=== PATIENT | male | born 1960 | race Caucasian/White ===

== ENCOUNTER 2020-08-18 07:03 | Day surgery (SDC) | payer BC ==
[~2020-08-18] VITALS: Ht 172.7 cm; Wt 90.7 kg
--- NOTE | ~2020-08-18 | HP ---
PATIENT: KATHY PORTILLO MEDICAL RECORD: [id number] ACCOUNT: [id number] LOCATION:[facility] : 58 ADMISSION DATE: 08/18/20 PCP: HISTORY AND PHYSICAL EXAMINATION HISTORY OF PRESENT ILLNESS: Mr. Portillo is 60. He has a left TM perforation with chronic problems with drainage and hearing loss, making it difficult to wear his hearing aid. He has been admitted for left tympanoplasty. PAST MEDICAL HISTORY: Include ulcers, hypertension and reflux. CURRENT MEDICATIONS: Losartan, omeprazole, amlodipine, celecoxib, amitriptyline, acyclovir. ALLERGIES: No known drug allergies. PAST SURGICAL HISTORY: Includes wrist surgery in 2019, knee surgery in 2015 and right carpal tunnel in 2012. PHYSICAL EXAMINATION: GENERAL: He is healthy-appearing. FACE: Normal, symmetric, no lesions. EYES: Sclerae and conjunctivae are normal. EARS: Right ear is normal. Left ear, he has an anterior inferior perforation; central not infected. NOSE: No masses, polyps, or drainage. ORAL CAVITY AND OROPHARYNX: Normal palate. No lesions. NECK: No masses, no adenopathy. CHEST: Clear. CARDIOVASCULAR: Regular rate and rhythm, no murmur. EXTREMITIES: Normal. IMPRESSION: Left tympanic membrane perforation with chronic otitis media and mixed hearing loss. PLAN: Left tympanoplasty. TRANSINT:[id number] Voice Confirmation ID: [id number] DOCUMENT ID: [id number] HONORIO ZACARISA MD CC: [id number] DICTATION DATE: 08/17/20 1408 [employer] BLOCKING OPERATOR: 08/17/20 1424 [id number] [place] [address]
--- NOTE | ~2020-08-18 | OP ---
PATIENT NAME: KATHY PORTILLO MEDICAL RECORD: [id number] :58 LOCATION:[facility] ADMISSION DATE: SURGEON: NILS KUMAR MD DATE OF OPERATION: 08/18/2020 PREOPERATIVE DIAGNOSES: Left TM perforation and left chronic otitis media, left conductive hearing loss. POSTOPERATIVE DIAGNOSES: Left TM perforation and left chronic otitis media, left conductive hearing loss. PROCEDURE: Left tympanoplasty. SURGEON: Nils Kumar MD ANESTHESIA: General orotracheal. BLOOD LOSS: Blood 1 cc. SPECIMENS: None. COMPLICATIONS: None. DISPOSITION: Recovery, stable. DESCRIPTION OF PROCEDURE: He was brought to the operating room and placed in supine position, sedated and intubated by anesthesia. Head was turned to the right. The left ear was cleaned with alcohol. Postauricular area injected with 0.25 cc 1% lidocaine with 1:100,000 epinephrine with a long 27-gauge needle. Microscope was brought in, examined the ear canal, was cleaned with Betadine, injected in the canal with less than 0.25 cc of 1% lidocaine with 1:100,000 epinephrine and then examined the ear, cleaned cerumen with a curette, irrigated the ear, suctioned it out. The perforation was anterior, inferior, central. A straight pick was used to clean up the edges of the perforation, I removed some epithelium with alligator forceps. Middle ear mucosa looked good. The patient was prepped and draped in the usual sterile fashion. Incision was made behind the left ear. Cartilage graft was obtained with a canal knife. This was split around the circumference with a 15 blade, trimmed to size. That incision was closed with interrupted subcutaneous 5-0 Vicryl. The ear canal was again examined and the TM was cleaned up, suctioned, irrigated with some Floxin drops. I cleaned out some of the Betadine, cleaned up the edges of the perforation again, the cartilage graft was placed anteriorly and inferiorly, really nice securely perfect size. Some Gelfoam was placed in the ear canal. Some Floxin drops were placed. He was awakened, extubated, and transported to recovery in good condition. No complications. TRANSINT:[id number] Voice Confirmation ID: [id number] DOCUMENT ID: [id number] OPERATIVE REPORT [id number] KATHY PORTILLO NILS KUMAR MD CC: [id number] DICTATION DATE: 08/18/20 1155 [facility] ANALYST: 08/18/20 190 [facility] 08/18/20 [address] [id number] [place] [id number]
[~2020-08-18 07:03] MED LIST: BAYER CHEWABLE81 MG PO; CELEBREX200 MG PO; COZAAR50 MG PO; ELAVIL25 MG PO; NORVASC10 MG PO; OMEPRAZOLE20 M1 PO
[2020-08-18 07:50] LABS: ANION GAP 11.3 mmol/L (8-16); CALCIUM 9.2 mg/dL (8.5-10.1); CARBON DIOXIDE 26.2 mmol/L (21.0-32.0); CREATININE - SERUM 1.1 mg/dL (0.6-1.3); POTASSIUM - SERUM 4.5 mmol/L (3.5-5.1)
[2020-08-18 08:13] LABS: BASOPHILS 1.3 % (0-2); EOSINOPHILS 3.6 % (0-7); HEMATOCRIT 43.1 % (42.0-54.0); HEMOGLOBIN 14.8 g/dL (13.5-17.5); IMMATURE GRANULOCYTES 0.2 % (0-5); LYMPHOCYTE ABS# 1.41 10x3/uL (1.32-3.57); MCH 28.7 pg (26.0-34.0); MCHC 34.3 g/dL (31.0-37.0); MCV 83.7 fL (80.0-100.0); MEAN PLATELET VOLUME 10.9 fL (7.4-10.4); NEUTROPHIL ABS# 2.44 10x3/uL (1.78-5.38); NEUTROPHILS 51.9 % (40-80); PLATELET COUNT 169 10x3/uL (130-400); RBC 5.15 10x6/uL (4.20-6.10); RDW 12.5 % (11.5-14.5); WBC 4.7 10x3/uL (4.8-10.8)
[2020-08-18] MEDS ORDERED: ZOVIRAX800 MG PO (08:39)
[2020-08-18 08:49] VITALS: BP 121/71; Ht 172.7 cm; Wt 90.7 kg
--- NOTE | 2020-08-18 13:19 | NUR ---
IV D/C'D WITH CANNULA INTACT, PRESSURE HELD AND DRSG PLACED. DISCHARGE INSTRUCTIONS GIVEN AND PT VERBALIZED AN UNDERSTANDING.
== END 2020-08-18 13:40 | disposition home or self-care (01) ==
LOC: D.OPS 07:03
PROVIDERS: Anesthesiology; ATTEND Otolaryngology
DX: H72.92 Unspecified perforation of tympanic membrane, left ear (principal); H66.92 Otitis media, unspecified, left ear; H90.2 Conductive hearing loss, unspecified; I10 Essential (primary) hypertension; K21.9 Gastro-esophageal reflux disease without esophagitis